=== PATIENT | male | born 1955 | race Caucasian/White ===

== ENCOUNTER 2019-10-03 20:59 | Emergency (ER) | payer OTHER ==
[~2019-10-03] VITALS: Ht 175.3 cm; Wt 99.8 kg
[2019-10-03 21:08] VITALS: Ht 175.3 cm; Wt 99.8 kg
[2019-10-03 21:46] VITALS: BP 158/72
== END 2019-10-03 21:46 | disposition home or self-care (01) ==
LOC: ED 20:59
DX: L76.22 Postprocedural hemorrhage of skin and subcutaneous tissue following other procedure (principal); I11.0 Hypertensive heart disease with heart failure; I50.9 Heart failure, unspecified; E78.00 Pure hypercholesterolemia, unspecified; Z95.0 Presence of cardiac pacemaker